=== PATIENT | female | born 1960 | race Caucasian/White ===

== ENCOUNTER 2019-08-13 06:43 | Outpatient (CLI) | payer BC, SELFPAY ==
[2019-08-13 17:05] LABS: SARS-CoV-2 RNA PCR Negative
== END 2019-08-13 06:44 | disposition home or self-care (01) ==
PROVIDERS: Visit Provider Internal Medicine Gastroenterology
DX: Z01.818 Encounter for other preprocedural examination (principal); Z11.59 Encounter for screening for other viral diseases
CPT/HCPCS: 87635; C9803; U0003

== ENCOUNTER 2019-08-16 01:56 | Day surgery (SDC) | payer BC, SELFPAY ==
[2019-08-10 13:34] VITALS: BMI 21.9
[2019-08-16 06:51] VITALS: BP 145/90; PULSE 103; RESP 16; TEMP 36.8; O2SAT 100
[2019-08-16] MEDS: LACTATED RINGERS 1,000 ML 150 ML IV CONT (06:59)
--- NOTE | 2019-08-16 07:13 | P.PNAN_ITS ---
Anes - Initial Pre Proc Eval Procedure: Operation Date: 08/16/19 08:00 Proposed Procedures p Colonoscopy - Nael Han MD Date/Time: 08/16/19 07:13 Surgeon: Nael Han MD Pre Op Diagnosis: Diverticulitis/Abnormal CAT Scan Patient Data Age: 58 Gender: F Height: 5 ft 4 in Weight: 57.4 kg Last Vital Signs Temp 36.8 C 08/16/19 06:51 Pulse 103 H 08/16/19 06:51 Resp 16 08/16/19 06:51 BP 145/90 H 08/16/19 06:51 Pulse Ox 100 08/16/19 06:51 Allergies Allergy/AdvReac Type Severity Reaction Status Date / Time Penicillins Allergy Intermediate Nervousness Verified 08/16/19 06:51 Home Medications Medication Instructions Recorded Confirmed Type calcium carbonate [Calcium 600] 600 mg PO DAILY 08/12/19 08/12/19 History clonazepam 0.5 mg PO PRN 08/12/19 08/12/19 History coenzyme Q10 [CoQ-10] 1 mg PO DAILY 08/12/19 08/16/19 History fluticasone propionate [Flonase 1 spray INTRANASAL BID 08/12/19 08/12/19 History Allergy Relief] latanoprost 0.005 % OPHTHALMIC (EYE) HS 08/12/19 08/12/19 History melatonin 0.5 mg PO HS PRN 08/12/19 08/12/19 History paroxetine HCl 20 mg PO DAILY 08/12/19 08/12/19 History progesterone 300 08/12/19 History testosterone 08/12/19 History vitamin D3-folic acid 1 tablet PO DAILY 08/12/19 08/12/19 History levothyroxine 25 mcg PO DAILY 08/16/19 08/16/19 History Patient hx anesthesia problems: post op nausea/vomiting Family hx anesthesia problems: post op nausea/vomiting PMFSH Past Medical History Medical History Acid reflux Anxiety Breast cancer Diverticulosis High cholesterol History of vaginal delivery Interstitial cystitis Thyroid disease Surgical History Surgical History History of dilation and curettage [place] teeth removed Family History Family History Mother Hypertension Father Family history of elevated blood lipids Patient's father is in good health Grandparent Cerebrovascular accident Social History Social History Smoking status: Never smoker Second hand tobacco smoke exposure: No Alcohol intake: never Gender identity (if verbalized by the patient): Female Anes - Eval Final PreProcedure Day of Procedure 08/16/19 07:13 Patient weight: normal Heart: tachycardia Lungs: clear to auscultation Airway: Mallampati scale class II and special considerations retrognathia Neurological: alert and oriented Last oral intake: >/= 8 hours ASA classification: III Emergent: no Anesthetic plan: proceed Anesthesia type and monitoring: general GIVS and standard monitoring Informed Consent: The patient's anesthetic plan and its attendant risks and benefits were discussed with the patient/family/POA. Questions were solicited and answers provided to the satisfaction of the patient/family/POA.
--- NOTE | 2019-08-16 07:44 | WPDGICN ---
Assessment and Plan Assessment and plan (1) Diverticulitis: Code(s): K57.92 - Diverticulitis of intestine, part unspecified, without perforation or abscess without bleeding Status: Acute Assessment and Plan: Patient clinically is had diverticulitis. That is now improved after course of antibiotics. Plan is for high-fiber diet a colonoscopy to evaluate you 8 for resolution of infection as well as the abnormality seen on CAT scan will be arranged. (2) Abnormal CT scan: Code(s): R93.89 - Abnormal findings on diagnostic imaging of other specified body structures Status: Acute GI Consult Note Consult date/time: 08/16/19 07:44 HPI: Angelique Quesada is a 58 year old female Seen in evaluation at the request of Dr. Christina Kirkland. patient reports abdominal pain in mid May of 2019 at that time she had left lower quadrant pain. She was evaluated with a CT scan suggesting diverticulitis. Patient was treated with antibiotics including both Flagyl and Cipro. Patient reports that her bowel habits remains somewhat irregular. There is noted be mucus in her stools. She denies any bleeding. Pain has abated essentially. Review of Systems Review of Systems: All systems reviewed & are unremarkable except as noted in HPI and below PMFSH Past Medical History Medical History Acid reflux Anxiety Breast cancer Diverticulosis High cholesterol History of vaginal delivery Interstitial cystitis Thyroid disease Surgical History Surgical History History of dilation and curettage [place] teeth removed Family History Family History Mother Hypertension Father Family history of elevated blood lipids Patient's father is in good health Grandparent Cerebrovascular accident Social History Social History Smoking status: Never smoker Second hand tobacco smoke exposure: No Alcohol intake: never Gender identity (if verbalized by the patient): Female Meds Home Medications and Allergies Home Medications Medication Instructions Recorded Confirmed Type calcium carbonate [Calcium 600] 600 mg PO DAILY 08/12/19 08/12/19 History clonazepam 0.5 mg PO PRN 08/12/19 08/12/19 History coenzyme Q10 [CoQ-10] 1 mg PO DAILY 08/12/19 08/16/19 History fluticasone propionate [Flonase 1 spray INTRANASAL BID 08/12/19 08/12/19 History Allergy Relief] latanoprost 0.005 % OPHTHALMIC (EYE) HS 08/12/19 08/12/19 History melatonin 0.5 mg PO HS PRN 08/12/19 08/12/19 History paroxetine HCl 20 mg PO DAILY 08/12/19 08/12/19 History progesterone 300 08/12/19 History testosterone 08/12/19 History vitamin D3-folic acid 1 tablet PO DAILY 08/12/19 08/12/19 History levothyroxine 25 mcg PO DAILY 08/16/19 08/16/19 History Allergies Allergy/AdvReac Type Severity Reaction Status Date / Time Penicillins Allergy Intermediate Nervousness Verified 08/16/19 06:51 Vital Signs Vital Signs - 24 hr 08/16/19 06:51 Temperature 36.8 C Pulse Rate 103 H Respiratory Rate 16 Blood Pressure 145/90 H Pulse Oximetry 100 Exam Narrative: Exam Narrative: Physical exam reveals patient to be alert. Vital signs are stable. HEENT exam unremarkable. She is anicteric. Lungs are clear to auscultation and percussion. Heart is without murmur or extra sounds. Abdominal exam bowel sounds are present soft nontender with no organomegaly. Digital external rectal exam normal.
[2019-08-16 08:09] VITALS: BP 101/70; PULSE 100; RESP 25; O2SAT 98
[2019-08-16 08:19] VITALS: BP 104/68; PULSE 98; RESP 23; O2SAT 98
[2019-08-16 08:29] VITALS: BP 121/79; PULSE 87; RESP 21; O2SAT 99
== END 2019-08-16 08:44 | disposition home or self-care (01) ==
PROVIDERS: Visit Provider Internal Medicine Gastroenterology
PROC: 0DJD8ZZ Inspection of Lower Intestinal Tract, Via Natural or Artificial Opening Endoscopic (ICD-10-PCS; CPT 45378; principal; 2019-08-16 08:00)
DX: K57.30 Diverticulosis of large intestine without perforation or abscess without bleeding (principal); K64.8 Other hemorrhoids; F41.9 Anxiety disorder, unspecified; Z85.3 Personal history of malignant neoplasm of breast; E78.00 Pure hypercholesterolemia, unspecified
CPT/HCPCS: 45378; J2001; J2704; J7120

== ENCOUNTER → 2021-06-12 08:05 | Outpatient (CLI) | payer BC, SELFPAY ==
--- NOTE | ~2021-06-12 | US_ITS ---
EXAMINATION: US transvaginal DATE: 06/12/2021 08:37 INDICATION: Personal history of malignant neoplasm of breast. TECHNIQUE: Multiple transvaginal sonographic images of the pelvis were obtained. COMPARISON: None. FINDINGS: The uterus measures 5.9 x 2.4 x 3.3 cm. There is no free fluid in the pelvis. The endometrial complex measures 9 mm in thickness. The right ovary measures 1.3 x 0.6 x 1.5 cm. The left ovary is not visua lized. IMPRESSION: 1. Thickened endometrial complex. The differential diagnosis includes endometrial hyperplasia, polyp, and carcinoma. Biopsy is recommended. Reviewed, dictated and finalized at location A. IMPRESSION: 1. Thickened endometrial complex. The differential diagnosis includes endometri al hyperplasia, polyp, and carcinoma. Biopsy is recommended.
== END ==
PROVIDERS: PCP Internal Medicine
DX: Z85.3 Personal history of malignant neoplasm of breast (principal); Z15.01 Genetic susceptibility to malignant neoplasm of breast; R93.89 Abnormal findings on diagnostic imaging of other specified body structures
CPT/HCPCS: 76830

== ENCOUNTER 2023-03-17 00:06 | Day surgery (SDC) | payer BC, SELFPAY ==
[2023-02-28 15:35] VITALS: BMI 23.4
--- NOTE | 2023-03-14 09:08 | SUR.PREOP ---
Patient called regarding upcoming procedure. Reviewed preop instructions, appointment times, and procedure prep.
[2023-03-17 08:35] VITALS: BP 115/93; PULSE 105; RESP 20; TEMP 36.6; O2SAT 100; BMI 23.1
[2023-03-17] MEDS: LACTATED RINGERS 1,000 ML 150 ML IV CONT (08:38)
--- NOTE | 2023-03-17 08:42 | WPDANESEPPF ---
Anes - Initial Pre Proc Eval Procedure: Operation Date: 03/17/23 09:30 Proposed Procedures p Colonoscopy - Nael Han MD Date/Time: 03/17/23 08:42 Surgeon: Nael Han MD Pre Op Diagnosis: Diverticulitis Patient Data Age: 62 Gender: F Height: 1.63 m Weight: 61.1 kg Last Vital Signs Temp 36.6 C 03/17/23 08:35 Pulse 105 H 03/17/23 08:35 Resp 20 03/17/23 08:35 BP 115/93 H 03/17/23 08:35 Pulse Ox 100 03/17/23 08:35 O2 Del Method Room Air 03/17/23 08:35 Allergies Allergy/AdvReac Type Severity Reaction Status Date / Time Penicillins AdvReac Intermediate Nervousness Verified 03/17/23 08:33 Home Medications Medication Instructions Recorded Confirmed Type calcium carbonate 600 mg calcium 600 mg PO DAILY 08/12/19 02/28/23 History (1,500 mg) tablet (Calcium) clonazepam 0.5 mg tablet 0.5 mg PO PRN 08/12/19 02/28/23 History fluticasone propionate 50 1 spray intranasal BID 08/12/19 02/28/23 History mcg/actuation nasal spray,suspension (Flonase Allergy Relief) latanoprost 0.005 % eye drops 0.005 % ophthalmic (eye) HS 08/12/19 02/28/23 History paroxetine HCl 20 mg tablet 20 mg PO DAILY 08/12/19 02/28/23 History progesterone 300 08/12/19 01/28/23 History testosterone 08/12/19 01/28/23 History vitamin D3 125 mcg (5,000 1 tablet PO DAILY 08/12/19 02/28/23 History unit)-folic acid 1 mg tablet IREDs EACH EYE 07/25/20 01/28/23 History calcium polycarbophil 625 mg 1,250 mg PO DAILY 07/25/20 02/28/23 History tablet (FiberCon) lactobacillus combination no.8 3 3,000 mmu cells PO DAILY 07/25/20 02/28/23 History billion cell capsule (Adult Probiotic) melatonin 5 mg capsule 5 mg PO DAILY 07/25/20 02/28/23 History omega 3,6,9 combination no.7 92 mg 92 mg PO DAILY 07/25/20 02/28/23 History (43 mg-22 [id number]) chew tablet progesterone clarisa BYMOUTH 07/25/20 01/28/23 History pseudoephedrine HCl 120 mg 120 mg PO Q12H 07/25/20 03/17/23 History tablet,extended release (Sudafed 12 Hour) thyroid (pork) 15 mg tablet 69.6 mg PO DAILY 07/25/20 03/17/23 History ([place] Thyroid) losartan 100 mg tablet 50 mg PO DAILY 01/18/21 02/28/23 History vitamin E 200 unit capsule 400 unit PO DAILY 01/18/21 02/28/23 History ezetimibe 10 mg tablet 10 mg PO DAILY 02/28/23 02/28/23 History Patient hx anesthesia problems: post op nausea/vomiting Family hx anesthesia problems: none Results Review: All pre-operative results and documents have been reviewed as part of the pre-operative evaluation. [facility] Past Medical History Medical History Acid reflux Anxiety Breast cancer Diverticulosis Glaucoma High cholesterol History of vaginal delivery Interstitial cystitis Thyroid disease Surgical History Surgical History H/O hand surgery right History of dilation and curettage S/P lumpectomy, left breast [place] teeth removed Family History Family History Mother Hypertension Father Family history of elevated blood lipids Patient's father is in good health Grandparent Cerebrovascular accident Social History Social History Smoking status: Never smoker Second hand tobacco smoke exposure: No Alcohol intake: never Substance use: never Substance use type: does not use Living arrangements: with family Gender identity (if verbalized by the patient): Female Spiritual care concerns: No Anes - Eval Final PreProcedure Day of Procedure 03/17/23 08:42 Patient weight: normal Heart: tachycardia Lungs: clear to auscultation Airway: Mallampati scale class II Neurological: alert and oriented Last oral intake: >/= 8 hours ASA classification: III Emergent: no Anesthetic plan: proceed Anesthesia type and
--- NOTE | 2023-03-17 09:07 | PM.HPGS ---
History of Present Illness History of Present Illness Consent: Risks, benefits, and alternatives have been discussed and questions answered. Patient agrees to proceed with procedure. Chief complaint: Diverticulitis Narrative: Angelique Quesada is a 62 year old female Presents for follow-up screening colonoscopy. Patient recently had diverticulitis. Documented by CT scan in early December 2022. She was treated with antibiotics. Abdominal pain is resolved. Her bowel habits returned to normal. Patient denies any bleeding. Previous colonoscopy 2019 revealed extensive diverticular disease. Family history noncontributory. Patient presents today for screening colonoscopy. Review of Systems Review of Systems: Review of systems noncontributory. REPLACED BY [facility] Past Medical History Medical History Acid reflux Anxiety Breast cancer Diverticulosis Glaucoma High cholesterol History of vaginal delivery Interstitial cystitis Thyroid disease Surgical History Surgical History H/O hand surgery right History of dilation and curettage S/P lumpectomy, left breast [place] teeth removed Family History Family History Mother Hypertension Father Family history of elevated blood lipids Patient's father is in good health Grandparent Cerebrovascular accident Social History Social History Smoking status: Never smoker Second hand tobacco smoke exposure: No Alcohol intake: never Substance use: never Substance use type: does not use Living arrangements: with family Gender identity (if verbalized by the patient): Female Spiritual care concerns: No Meds Home Medications and Allergies Home Medications Medication Instructions Recorded Confirmed Type calcium carbonate 600 mg calcium 600 mg PO DAILY 08/12/19 02/28/23 History (1,500 mg) tablet (Calcium) clonazepam 0.5 mg tablet 0.5 mg PO PRN 08/12/19 02/28/23 History fluticasone propionate 50 1 spray intranasal BID 08/12/19 02/28/23 History mcg/actuation nasal spray,suspension (Flonase Allergy Relief) latanoprost 0.005 % eye drops 0.005 % ophthalmic (eye) HS 08/12/19 02/28/23 History paroxetine HCl 20 mg tablet 20 mg PO DAILY 08/12/19 02/28/23 History progesterone 300 08/12/19 01/28/23 History testosterone 08/12/19 01/28/23 History vitamin D3 125 mcg (5,000 1 tablet PO DAILY 08/12/19 02/28/23 History unit)-folic acid 1 mg tablet IREDs EACH EYE 07/25/20 01/28/23 History calcium polycarbophil 625 mg 1,250 mg PO DAILY 07/25/20 02/28/23 History tablet (FiberCon) lactobacillus combination no.8 3 3,000 mmu cells PO DAILY 07/25/20 02/28/23 History billion cell capsule (Adult Probiotic) melatonin 5 mg capsule 5 mg PO DAILY 07/25/20 02/28/23 History omega 3,6,9 combination no.7 92 mg 92 mg PO DAILY 07/25/20 02/28/23 History (43 mg-22 [id number]) chew tablet progesterone clarisa BYMOUTH 07/25/20 01/28/23 History pseudoephedrine HCl 120 mg 120 mg PO Q12H 07/25/20 03/17/23 History tablet,extended release (Sudafed 12 Hour) thyroid (pork) 15 mg tablet 69.6 mg PO DAILY 07/25/20 03/17/23 History ([place] Thyroid) losartan 100 mg tablet 50 mg PO DAILY 01/18/21 02/28/23 History vitamin E 200 unit capsule 400 unit PO DAILY 01/18/21 02/28/23 History ezetimibe 10 mg tablet 10 mg PO DAILY 02/28/23 02/28/23 History Allergies Allergy/AdvReac Type Severity Reaction Status Date / Time Penicillins AdvReac Intermediate Nervousness Verified 03/17/23 08:33 Vital Signs Vital Signs - 24 hr 03/17/23 08:35 Temperature 97.8 F Pulse Rate 105 H Respiratory Rate 20 Blood Pressure 115/93 H Pulse Oximetry 100 Oxygen Delivery Room Air Exam Narrative: Physical exam reveals patient to b
[2023-03-17 09:35] VITALS: BP 87/49; PULSE 90; RESP 19; O2SAT 97
[2023-03-17 09:45] VITALS: BP 89/54; PULSE 92; RESP 22; O2SAT 98
[2023-03-17 09:55] VITALS: BP 105/59; PULSE 84; RESP 20; O2SAT 100
== END 2023-03-17 10:09 | disposition home or self-care (01) ==
PROVIDERS: PCP Internal Medicine; Visit Provider Internal Medicine Gastroenterology
PROC: 0DJD8ZZ Inspection of Lower Intestinal Tract, Via Natural or Artificial Opening Endoscopic (ICD-10-PCS; CPT 45378; principal; 2023-03-17 09:30)
DX: Z09 Encounter for follow-up examination after completed treatment for conditions other than malignant neoplasm (principal); K57.30 Diverticulosis of large intestine without perforation or abscess without bleeding; K64.8 Other hemorrhoids; Z87.19 Personal history of other diseases of the digestive system; E07.9 Disorder of thyroid, unspecified; E78.00 Pure hypercholesterolemia, unspecified; H40.9 Unspecified glaucoma; F41.9 Anxiety disorder, unspecified
CPT/HCPCS: 45378; J2704; J7120